=== PATIENT | female | born 1995 | race Two or more races ===

== ENCOUNTER 2022-10-27 10:45 | Outpatient (CLI) | payer OTHER | END 2022-10-27 12:25 | disposition home or self-care (01) | LOC: PRENATAL 10:45 | PROVIDERS: ATTEND Obstetrics & Gynecology Maternal & Fetal Medicine | DX: O35.9XX0 Maternal care for (suspected) fetal abnormality and damage, unspecified, not applicable or unspecified (principal); O35.3XX0 Maternal care for (suspected) damage to fetus from viral disease in mother, not applicable or unspecified; Z3A.22 22 weeks gestation of pregnancy ==

== ENCOUNTER 2022-12-15 02:08 | Inpatient (IN) | payer OTHER ==
[~2022-12-15] VITALS: Ht 157.5 cm; Wt 0.9 kg
[2022-12-15] MEDS ORDERED: PRENATAL TABLE1 EAC1 PO (04:06)
[2022-12-15] MEDS ORDERED: FOLIC ACID0.8 M1 PO (04:06)
[2022-12-24] MEDS ORDERED: IBUPROFEN800 MG PO ×4 (07:25→07:32)
== END 2022-12-24 12:47 | disposition home or self-care (01) | DRG 787 ==
LOC: OBS/DEL 02:08 → LDR 08:32 → OBS/DEL 08:32 → OB/GYN 08:32
PROVIDERS: ADMIT Obstetrics & Gynecology; ATTEND Obstetrics & Gynecology
PROC: BW40ZZZ Ultrasonography of Abdomen (ICD-10-PCS; 2022-12-15)
PROC: BT43ZZZ Ultrasonography of Bilateral Kidneys (ICD-10-PCS; 2022-12-15)
PROC: 4A1HXCZ Monitoring of Products of Conception, Cardiac Rate, External Approach (ICD-10-PCS; 2022-12-15)
PROC: BY4FZZZ Ultrasonography of Third Trimester, Single Fetus (ICD-10-PCS; 2022-12-15)
PROC: BU4CZZZ Ultrasonography of Uterus and Ovaries (ICD-10-PCS; 2022-12-15)
PROC: 10D00Z1 Extraction of Products of Conception, Low, Open Approach (ICD-10-PCS; principal; 2022-12-21 11:30)
DX: O14.14 Severe pre-eclampsia complicating childbirth (principal); N12 Tubulo-interstitial nephritis, not specified as acute or chronic; O41.03X0 Oligohydramnios, third trimester, not applicable or unspecified; O98.82 Other maternal infectious and parasitic diseases complicating childbirth; O26.843 Uterine size-date discrepancy, third trimester; O36.5930 Maternal care for other known or suspected poor fetal growth, third trimester, not applicable or unspecified; O99.893 Other specified diseases and conditions complicating puerperium; O60.14X0 Preterm labor third trimester with preterm delivery third trimester, not applicable or unspecified; O32.1XX0 Maternal care for breech presentation, not applicable or unspecified; O13.4 Gestational [pregnancy-induced] hypertension without significant proteinuria, complicating childbirth; Z37.0 Single live birth; Z3A.29 29 weeks gestation of pregnancy; Z20.822 Contact with and (suspected) exposure to COVID-19

== ENCOUNTER → 2022-12-15 | Emergency (ER) | payer OTHER ==
[~2022-12-15] MED LIST: FOLIC ACID0.8 M1 PO; PRENATAL TABLE1 EAC1 PO
== END | disposition home or self-care (01) ==
LOC: ER 01:10
DX: O23.03 Infections of kidney in pregnancy, third trimester (principal); Z3A.29 29 weeks gestation of pregnancy; K29.70 Gastritis, unspecified, without bleeding

== ENCOUNTER 2022-12-30 13:06 | Outpatient (CLI) | payer OTHER ==
[~2022-12-30 13:06] MED LIST changes: +IBUPROFEN800 MG PO
== END 2022-12-30 13:09 | disposition home or self-care (01) ==
LOC: LAB 13:06
PROVIDERS: ATTEND Obstetrics & Gynecology
DX: Z20.822 Contact with and (suspected) exposure to COVID-19 (principal)